=== PATIENT | male | born 1940 | race Caucasian/White ===

== ENCOUNTER → 2016-11-11 | Outpatient (CLI) | payer OTHER, MEDICARE ==
[2016-11-11 18:41] LABS: ALT/SGPT 23 U/L (12-78); BLOOD UREA NITROGEN 28 mg/dl (7-18); BUN/CREATININE RATIO 17.3 (10-20); CARBON DIOXIDE 27 mmol/L (21-32); CHLORIDE 106 mmol/L (98-107); GLUCOSE 88 mg/dl (70-99); POTASSIUM 5.2 mmol/L (3.5-5.1); SODIUM 139 mmol/L (136-145)
[2016-11-11 18:43] LABS: CHOLESTEROL 202 mg/dl (0-200); HDL CHOLESTEROL 67 mg/dl; LDL CHOLESTEROL CALCULATED 123 mg/dl; TRIGLYCERIDES 58 mg/dl (0-150); VERY LOW DENSITY LIPOPROT CALC 12 mg/dl
[2016-11-11 19:11] LABS: % FREE PSA 12.4 %; FREE PSA 1.51 ng/ml; PROSTATE SPECIFIC ANTIGEN 12.2 ng/ml (0.000-4.000)
== END | disposition home or self-care (01) ==
LOC: C.LABMFLN 14:30
PROVIDERS: ATTEND Family Medicine
DX: R97.20 Elevated prostate specific antigen [PSA] (principal); N18.3 Chronic kidney disease, stage 3 (moderate); I10 Essential (primary) hypertension

== ENCOUNTER → 2016-11-12 | Outpatient (CLI) | payer OTHER, MEDICARE | END | disposition home or self-care (01) | LOC: C.LABMFLN 15:01 | PROVIDERS: ATTEND Family Medicine | DX: R97.20 Elevated prostate specific antigen [PSA] (principal); K40.90 Unilateral inguinal hernia, without obstruction or gangrene, not specified as recurrent; N32.89 Other specified disorders of bladder ==

== ENCOUNTER → 2016-12-25 | Outpatient (CLI) | payer OTHER, MEDICARE ==
[2016-12-25 10:31] LABS: BLOOD UREA NITROGEN 34 mg/dl (7-18); BUN/CREATININE RATIO 24.4 (10-20)
== END | disposition home or self-care (01) ==
LOC: C.LAB 09:35
PROVIDERS: ATTEND Urology
DX: R97.20 Elevated prostate specific antigen [PSA] (principal)

== ENCOUNTER → 2017-01-20 | Outpatient (CLI) | payer OTHER, MEDICARE | END | disposition home or self-care (01) | LOC: C.LABMFLN 15:19 | PROVIDERS: ATTEND Family Medicine | DX: N32.89 Other specified disorders of bladder (principal); R97.20 Elevated prostate specific antigen [PSA]; K40.90 Unilateral inguinal hernia, without obstruction or gangrene, not specified as recurrent ==

== ENCOUNTER → 2017-09-02 | Outpatient (CLI) | payer OTHER, MEDICARE | END | disposition home or self-care (01) | LOC: C.LABMFLN 15:58 | PROVIDERS: ATTEND Family Medicine | DX: C61 Malignant neoplasm of prostate (principal) ==

== ENCOUNTER → 2017-12-16 | Outpatient (CLI) | payer OTHER, MEDICARE | END | disposition home or self-care (01) | LOC: C.PATHSPEC 17:47 | PROVIDERS: ATTEND Family Medicine | DX: D22.9 Melanocytic nevi, unspecified (principal); L28.0 Lichen simplex chronicus ==